=== PATIENT | female | born 1975 | race Two or more races ===

== ENCOUNTER → 2021-06-16 | Outpatient (CLI) | payer BC, OTHER, SELFPAY ==
--- NOTE | 2021-06-16 17:57 | REP ---
INDICATION: RIGHT LOWER PAIN COMPARISON: None. TECHNIQUE: Transabdominal pelvic ultrasound followed by transvaginal examination for better evaluation of the adnexa with color Doppler evaluation of the ovaries. FINDINGS: Bladder is unremarkable and measures 11.0 x 8.2 x 10.5 cm. Patient is noted to be status post hysterectomy. Ovaries are not visualized. Evaluation is limited due to significant amount of bowel gas in the pelvis. IMPRESSION: No obvious abnormality. Ovaries not visualized due to bowel gas. <Electronically signed by Royal Coates > 06/16/21 [id number]
== END ==
LOC: M RAD 11:12
PROVIDERS: ATTEND Family Medicine
DX: R10.31 Right lower quadrant pain (principal); Z90.79 Acquired absence of other genital organ(s)

== ENCOUNTER → 2024-04-04 | Outpatient (CLI) | payer OTHER | LOC: M WHC 08:29 | PROVIDERS: ATTEND Family Medicine | DX: Z12.31 Encounter for screening mammogram for malignant neoplasm of breast (principal); Z53.9 Procedure and treatment not carried out, unspecified reason ==